=== PATIENT | male | born 1945 | race Caucasian/White ===

== ENCOUNTER 2016-07-20 11:15 | Outpatient (CLI) | payer MEDICAID ==
[~2016-07-20] VITALS: Ht 175.3 cm; Wt 90.1 kg
--- NOTE | ~2016-07-20 | HEMODYNAMI ---
PATIENT:PATRICIA OCHOA MEDICAL RECORD: [id number] : 49 LOCATION:[facility] [id number] ADMISSION DATE: 07/20/16 Generatedon:07/21/20169:10 Patient name: PATRICIA OCHOA Patient #: [id number] SSN: : 1945 Date of study: 07/21/2016 Page: Of Hemodynamic Procedure Report Patient Data Patient Demographics Procedure consent was obtained First Name: PATRICIA Gender: Male Last Name: DON : 1945 Patient #: [id number] Age: 71 year(s) Race: Unknown Additional ID: [id number] Contact details [address]: [address] [place] [address] State: [place] City: [place] Zip code: [address] Past Medical History Allergies: No known allergies Admission Admission Data Admission Date: 07/20/2016 Admission Time: 12:27 Room #: [facility] Lab Results Lab Result Date: 07/21/2016 Lab Result Time: 0:00 Biochemistry Name Units Result Min Max BUN mg/dl 17 --(---*)-- 7 18 Creatinine mg/dl 1 --(--*-)-- 0.6 1.3 CBC Name Units Result Min Max Hemoglobin g/dl 14.8 --(-*--)-- 13.5 17.5 Procedure Procedure Types Cath Procedure Diagnostic Procedure [facility] w/Coronaries PCI Procedure Coronary Stent Initial Procedure Description Procedure Date Procedure Date: 07/21/2016 Procedure Start Time: 8:39 Procedure End Time: 9:09 Procedure Staff Name Function German Bunn MD Performing Physician John Sandoval RT Scrub Kimberley Adam RN Nurse Herve Ramon RT Monitor Procedure Data Cath Procedure Fluoroscopy Diagnostic fluoroscopy Total fluoroscopy Time: 7.2 time: 7.2 min min Diagnostic fluoroscopy Total fluoroscopy dose: dose: 1425 mGy 1425 mGy Contrast Material Contrast Material Type Amount (ml) Isovue 300 143 Entry Location Entry Primary Successful Side Size Upsize Upsize Entry Closure Shen ccessful Closure Location (Fr) 1 (Fr) 2 (Fr) Remarks Device Remarks Radial Right 6 Fr Mechanical artery Short Compression Femoral Right 6 Fr Exoseal artery Short Diagnostic catheters Device Type Used For End Catheter Placement Terumo 5Fr Raymon 110cm LV Angiography catheter Terumo 5Fr [place] 110cm Left Coronary catheter Angiography Cordis Infinity 5Fr AR Right Coronary MOD Catheter Angiography Cordis Infinity 5Fr 3DRC Right Coronary catheter Angiography Procedure Complications No complications Procedure Medications Medication Administration Route Dosage Oxygen NC 2 l/min Lidocaine 2% added to field 20 Heparin Flush Bag added to field 2 bags (1000units/500ml NS) 0.9% NaCl I.V. 100 ml/hr Versed I.V. 1 mg Fentanyl I.V. 50 mcg Radial Cocktail I.A. 1 syringe (Verapomil 2mg/Nitro 400mcg/Heparin 1500units) Versed I.V. 1 mg Fentanyl I.V. 50 mcg Heparin Bolus I.V. 9000 units Plavix P.O. 600 mg Hemodynamics Rest HGB: 14.8 (g/dl) Heart Rate: 52 (bpm) Pressure Samples Time Site Value (mmHg) Purpose Heart Use Rate(bpm) 8:41 LV 101/9,18 EDP 78 8:42 AO 91/56(68) Pullback 76 8:42 LV 112/16,20 Pullback 76 Gradients Valve Time Site 1 Site 2 Mean SEP/DFP Peak To Heart Use (mmHg) (sec/min) Peak Rate (mmHg) (bpm) Aortic 8:42 LV AO 9 19 21 76 112/16,20 91/56(68) Calculations Valve P-P Mean Valve Index Valve Source Name Gradient Area Flow (cm2) Aortic 21 9 21 9 Snapshots Pre Cath Intra NCS Post Cath Vital Signs Time Heart Resp SPO2 NIBP (mmHg) Rhythm Pain Sedation Rate (ipm) (%) Status Level (bpm) 8:21:45 52 25 99 142/67(116) NSR 0 (11) 10(A) , No pain 8:26:05 61 29 98 133/67(104) NSR 0 (11) 10(A) , No pain 8:30:23 57 23 98 129/71(101) NSR 0 (11) 10(A) , No pain 8:34:43 58 18 98 122/63(87) NSR 0 (11) 10(A) , No pain 8:38:59 56 16 98 111/61(87) NSR 0 (11) 9(A) , No pain 8:43:11 79 15 97 96/53(86) NSR 0 (11) 9(A) , No pain 8:47:19 66 17 96 114/63(80) NSR 0 (11) 9(A) , No pain 8:51:34 58 18 99 125/55(90) NSR 0 (11) 9(A) , No pain 8:55:50 59 16 99 120/65(81) NSR 0 (11) 9(A) , No pain 9:00:07 61 18 99 107/59(75) NSR 0 (11) 9(A) , No pain 9:04:16 58 19 98 118/64(93) NSR 0 (11) 10(A) , No pain 9:09:09 61 21 98 124/68(98) NSR 0 (11) 9(A) , No pain Medications Time Medication Route Dose Verified Delivered Reason Notes Effectiveness by by 8:20:41 Oxygen NC 2 l/min German Buffie used for Kendell Adam RN procedure 8:20:49 Lidocaine 2% added 20ml German German for local to vial Kendell Bunn MD anesthetic field 8:20:54 Heparin Flush added 2 bags German German used for Bag to Kendell Bunn MD procedure (1000units/500ml field NS) 8:21:03 0.9% NaCl I.V. 100 German Buffie Per physician ml/hr Kendell Adam RN 8:33:24 Versed I.V. 1 mg German Buffie for sedation Kendell Adam RN 8:33:30 Fentanyl I.V. 50 mcg German Buffie for sedation Kendell Adam RN 8:41:35 Radial Cocktail I.A. 1 German German for (Verapomil syringe Kendell Bunn MD vasodilation 2mg/Nitro 400mcg/Heparin 1500units) 8:41:40 Versed I.V. 1 mg German Buffie for sedation Kendell Adam RN 8:41:43 Fentanyl I.V. 50 mcg German Buffie for sedation Kendell Adam RN 8:55:07 Heparin Bolus I.V. 9,000 German Buffie for verif ied units Kendell Adam RN anticoagulation with dr bunn 9:06:50 Plavix P.O. 600 mg German Adam RN antiplatelet therapy Procedure Log Time Note 7:57:27 ACC Patient presents with Unstable Angina CCS Anginal Class 2--Slight limitation of ordinary activity. 7:58:04 Diagnostic Cath status Urgent 8:00:30 John Sandoval RT(R) sent for patient. Start room use. 8:10:48 Patient received from PCU to CCL 1 Alert and oriented. Tansferred to table in Supine position. 8:14:38 Time tracking: Regular hours 8:14:42 Plan of Care:Hemodynamics will remain stable., Cardiac rhythm will remain stable., Comfort level will be maintained., Respiratory function will remain adequate., Patient/ family verbilizes understanding of procedure., Procedure tolerated without complication., Recovers from procedure without complications.. 8:14:55 Warm blankets applied, and david hugger turned on for patient comfort. 8:14:56 Correct patient and procedure confirmed by team. 8:14:57 Signed procedure consent form obtained from patient. 8:14:57 ECG and BP/O2 sat monitors applied to patient. 8:20:34 Vital chart was started 8:20:35 Baseline sample Acquired. 8:20:38 Rhythm: sinus rhythm 8:20:41 Oxygen 2 l/min NC was given by Kimberley Adam RN; used for procedure; 8:20:41 Full Disclosure recording started 8:20:49 Lidocaine 2% 20ml vial added to field was given by German Bunn MD; for local anesthetic; 8:20:54 Heparin Flush Bag (1000units/500ml NS) 2 bags added to field was given by German Bunn MD; used for procedure; 8:21:03 0.9% NaCl 100 ml/hr I.V. was given by Kimberley Adam RN; Per physician; 8:21:49 H&P Date Dictated: 07/20/2016 Within 30 days and on chart.. 8:21:50 Pre-procedure instructions explained to patient. 8:21:51 Pre-op teaching completed and patient verbalized understanding. 8:21:56 Patient NPO since Midnight. 8:22:03 Patient allergic to No known allergies 8:22:06 Is the patient allergic to Iodine/contrast media? No. 8:22:13 Is patient on blood thinner?No 8:22:38 Patient diabetic? No. 8:22:40 ----Pre-sedation anethsthesia assessment.---- 8:22:43 Previous problem with sedation/anesthesia? No ? 8:22:44 Snore? Yes 8:22:45 Sleep apnea? No 8:22:47 Deviated septum? No 8:22:48 Opens mouth fully? Yes 8:22:49 Sticks out tongue? Yes 8:22:51 Airway obstruction? No ? 8:22:53 Dentures? No ? 8:22:54 Pre procedure: right dorsailis pedis pulse 1+ Palpable, but thready & weak; easily obliterated 8::57 Modified Andre's test Ulnar < 7 seconds 8:22:59 Patient pain scale 0/10 ?. 8:23:09 IV patent on arrival in left forearm with 0.9% NaCl at 10ml/hr. 8::38 Lab Result : BUN 17 mg/dl 8::38 Lab Result : Hemoglobin 14.8 g/dl 8::38 Lab Result : Creatinine 1 mg/dl 8:27:06 Lab results completed and on chart. 8:27:09 Right Radial & Right Groin area was prepped with chlora-prep and draped in sterile fashion 8:27:10 Alarms reviewed by R. N. 8:27:10 Sharps counted by scrub and verified by R.N. 8:27:11 Physician paged 8:30:02 Zero performed for pressure channel P1 8:31:30 --------ALL STOP TIME OUT------ 8:31:31 Final Timeout: patient, procedure, and site verified with staff and physician. All members of the team are in agreement. 8:31:32 Right Radial & Right Groin site verified by team. 8:31:35 Physical assessment completed. ASA score P 2 - A patient with mild systemic disease as per German Bunn MD. 8:31:42 Sedation plan: IV Moderate Sedation Versed, Fentanyl 8:33:24 Versed 1 mg I.V. was given by Kimberley Adam RN; for sedation; 8:33:30 Fentanyl 50 mcg I.V. was given by Buffie Daam RN; for sedation; 8:38:47 Use device set Radial Dx 8:38:50 Acist Syringe opened to sterile field. 8:38:51 Cardinal Cath Pack opened to sterile field. 8:38:51 Bag Decanter opened to sterile field. 8:38:52 Terumo 6Fr Slender Glidesheath opened to sterile field. 8:38:52 St Tigre 260cm J .035 wire opened to sterile field. 8:38:53 Acist Hand Control opened to sterile field. 8:38:54 Acist Manifold opened to sterile field. 8:38:55 Tegaderm 4 x 4 opened to sterile field. 8:39:04 Procedure started. 8:39:49 Local anesthetic to right radial artery with Lidocaine 2% by German Bunn MD.INITIAL ACCESS ONLY 8:40:00 A 6 Fr Short sheath was inserted into the Right Radial artery 8:40:47 A Terumo 5Fr Raymon 110cm catheter was advanced over the wire and used for LV Angiography. 8:40:50 LV angiography performed. 8:41:35 Radial Cocktail (Verapomil 2mg/Nitro 400mcg/Heparin 1500units) 1 syringe I.A. was given by German Bunn MD; for vasodilation; 8:41:36 LV gram done using QUIROZ 8:41:37 LV hemodynamics recorded. 8:41:40 Versed 1 mg I.V. was given by Kimberley Adam RN; for sedation; 8:41:41 Injector settings: Ml/sec: 5, Volume: 15, 8:41:43 Fentanyl 50 mcg I.V. was given by Kimberley Adam RN; for sedation; 8:41:48 EF : 50 % 8:42:59 Catheter removed. 8:43:18 A Terumo 5Fr [place] 110cm catheter was advanced over the wire and used for Left Coronary Angiography. 8:44:39 LCA angiography performed. 8:46:03 Catheter removed. 8:46:41 A Cordis Infinity 5Fr AR MOD Catheter was advanced over the wire and used for Right Coronary Angiography. 8:47:57 Catheter removed. 8:48:03 Local anesthetic to right femoral artery with Lidocaine 2% by German Bunn MD.ADDITIONAL ACCESS 8:48:11 A 6 Fr Short sheath was inserted into the Right Femoral artery 8:48:24 Terumo 6Fr [place] Sheath opened to sterile field. 8:48:55 A Cordis Infinity 5Fr 3DRC catheter was advanced over the wire and used for Right Coronary Angiography. 8:49:04 RCA angiography performed. 8:49:26 Baseline sample Acquired. 8:51:29 Catheter removed. 8:53:17 High Pressure Extension Tubing (Bunn) opened to sterile field. 8:53:18 Taylor BMW [place] 2 J-tip 300cm 0.014 guide wir opened to sterile field. 8:53:18 MuciMed BasixCompak Inflation Kit opened to sterile field. 8:53:19 Cordis 6FR XBLAD 3.5 guide catheter opened to sterile field. 8:53:29 ACC PCI Site: mLAD has 99% stenosis. 8:53:31 ACC Pre-intervention YANET Flow is 3. 8:53:40 6 Fr XBLAD 3.5 guide catheter was inserted over the wire 8:53:45 BMW 2 wire advanced. 8:55:07 Heparin Bolus 9,000 units I.V. was given by Kimberley Adam RN; for anticoagulation; verified with dr bunn 8:56:36 Inflation number: 1 A [employer] [place] 2.5 X 12 balloon was prepped and advanced across the Mid LAD, then inflated to 12 ROHINI for 0:13 (min:sec). 8:57:22 Balloon removed over the wire. 8:57:37 Procedure type changed to Cath procedure, Diagnostic procedure, LHC, LHC w/Coronaries, PCI procedure, Coronary Stent Initial 9:00:21 Inflation Number: 2 A [place] Visiontronic Integrity 3.0 X 22 stent was prepped and advanced across the Mid LAD. The stent was deployed at 14 ROHINI for 0:12 (min:sec). 9:02:11 Cordis 6Fr Exoseal opened to sterile field. 9:02:12 Terumo TR Band Standard opened to sterile field. 9:02:18 ACC Post-intervention YANET Flow is 3. 9:02:19 Stent catheter was removed intact over wire. 9:02:20 Wire removed. 9:02:20 Guide catheter removed. 9:02:26 Contrast amount:Isovue 300 143ml. 9:02:36 Sheath removed intact; hemostasis achieved with Exoseal to the Right Femoral artery. 9:02:41 Sheath removed intact; hemostasis achieved with Mechanical Compression to the Right Radial artery. 9:02:43 Procedure ended.(Physican Out) 9:02:55 Fluoroscopy time 07.20 minutes. 9:03:00 Fluoroscopy dose: 1425 mGy 9:03:00 Flurop Dose total: 1425 9:03:01 Sharps counted by scrub and verified by R.N. 9:03:03 TR band inflated with 10cc of air. 9:03:04 Insertion/operative site no bleeding no hematoma. 9:03:08 Post-op/insertion site Right Femoral artery dressed using a 4 x 4 and Tegaderm. 9:03:10 Post right femoral artery:stable 9:03:15 Post right radial artery:stable 9:03:16 Post Procedure Pulses reassessed and unchanged 9:03:18 Post procedure rhythm: sinus rhythm 9:03:20 Post procedure instruction explained to patient.Patient verbalizes understanding. 9:06:32 Procedure and supply charges have been captured, reviewed, submitted and are correct. 9:06:36 Procedure Complication : No complications 9:06:50 Plavix 600 mg P.O. was given by Kimberley Adam RN; for antiplatelet therapy; 9:09:08 Vital chart was stopped 9:09:09 See physician's report for complete and final results. 9:09:11 Report given to PCU. 9:09:14 Patient transfered to PCU with Bed. 9:09:16 Procedure ended. 9:09:16 Full Disclosure recording stopped 9:09:25 End room use (Document Last) 9:09:30 ACC-PCI Only Patient was given prescriptions, or instructed by German Bunn MD to start/continue the following medications upon discharge: Plavix Intervention Summary Intervention Notes Time ActionType Lesion and Equipment Action# Pressure Duration Attributes Used 8:56:36 Inflate Mid LAD Roy 1 12 00:14 balloon Sci [place] 2.5 X 12 balloon 9:00:21 Place stent Mid LAD Medtronic 2 14 00:12 Integrity 3.0 X 22 stent Device Usage Item Name Manufacture Quantity Catalog Number Hospital Part Current Mini mal Lot# / Charge Number Stock Stock Serial# Code Acist Acist 1 34026 816138 823953 928196 20 Novomer [facility] Cardinal Cardinal 1 [id number] 501965 20491 740117 5 Cath Pack Health Bag Microtek 1 2002S [id number] 69625 949447 5 CEYX Inc. Terumo 6Fr Terumo 1 [id number] 778180 797550 671047 [address] Tig[address] St Tigre 1 [id number] 230855 210718 519841 30 260cm J .035 wire Acist Hand Acist 1 94698 263520 292439 062129 5 Black Ocean [employer] Inc Acist Acist 1 85624 460818 854154 820477 5 DisplayLink Medical Systems Inc Tegaderm 4 3M 1 1626W 611065 146006 357825 5 x 4 Terumo 5Fr Terumo 1 40-5023 317555 654210 670303 5 Raymon 110cm catheter Terumo 5Fr Terumo 1 40-0513 666860 496208 405536 5 [place] 110cm catheter Cordis Cardinal 1 [id number] 394442 116386 634711 15 [employer] Solutions Pvt. [employer].ity Health 5Fr AR MOD Catheter Terumo 6Fr Terumo 1 [id number] 058870 361642 720691 40 [place] Sheath Cordis Cardinal 1 [id number] 207490 479314 374968 9 Infinity VYRE Limited 5Fr 3DRC catheter High Merit 1 [id number] 048968 16355 057303 10 Pressure Medical Extension Tubing (Bunn) Taylor BMW Taylor 1 [id number] 672271 180878 094120 5 [place] 2 Vascular J-tip 300cm 0.014 guide wir Merit Merit 1 [id number] 582900 457485 152186 15 [facility]als[facility] Medical Inflation Kit Cordis 6FR Cardinal 1 [id number] 356521 426916 931916 10 XBLAD 3.5 Health guide catheter Roy Sci Roy 1 [id number] 953247 435734 927411 1 [id number] [employer]era 2.5 X 12 balloon Medtronic Medtronic 1 [id number] 167065 990227 741188 0 [id number] Integrity 3.0 X 22 stent Cordis 6Fr Cardinal 1 EX600 578154 343522 860410 10 Shopetti Health Terumo TR Terumo 1 [id number] 895957 880034 761967 40 Band Standard Signature Audit [place] Stage Time Signature Unsigned Intra-Procedure 07/21/2016 Herve Ramon 9:10:09 AM RT(R) Signatures Monitor : Herve Ramon RT Signature : Date : Time : [id number] [place] [address]
[2016-07-20 10:37] LABS: BASOPHILS 0.4 % (0.0-2.0); EOSINOPHILS 1.4 % (0-7); HEMATOCRIT 44.3 % (42.0-54.0); HEMOGLOBIN 14.8 g/dL (13.5-17.5); IMMATURE GRANULOCYTES 0.3 % (0-5); LYMPHOCYTES 16.7 % (15-50); MCH 31.6 pg (26.0-34.0); MCHC 33.4 g/dL (31.0-37.0); MCV 94.7 fL (80.0-100.0); NEUTROPHILS 75.2 % (40-80); PLATELET COUNT 254 10x3/uL (130-400); RBC 4.68 10x6/uL (4.20-6.10); RDW 13.4 % (11.5-14.5); WBC 7.7 10x3/uL (4.8-10.8)
[2016-07-20 10:41] LABS: ALBUMIN 3.6 g/dL (3.4-5.0); ALKALINE PHOSPHATASE 40 U/L (46-116); ALT (SGPT) 25 U/L (10-68); BILIRUBIN - TOTAL 0.45 mg/dL (0.2-1.3); CALC OSMOLALITY 288 mosm/kg (275-300); CALCIUM 8.8 mg/dL (8.5-10.1); CHLORIDE - SERUM 106 mmol/L (98-107); GLUCOSE 138 mg/dL (74-106); PROTEIN - SERUM 6.7 g/dL (6.4-8.2); SODIUM 143 mmol/L (136-145); UREA NITROGEN 17 mg/dL (7-18); eGFR NON AFRICAN AMERICAN 79 mL/min (90-120)
[2016-07-20 10:56] LABS: CHOL - HDL RATIO 4.8 ratio (2.3-4.9); CHOLESTEROL, TOTAL 214 mg/dL (0-200); CKMB 3.8 U/L (0.0-3.6); CREATINE KINASE 106 UL (21-232); HDL CHOLESTEROL 45 mg/dL (32-96); LDL CHOLESTEROL 144 mg/dL (0-100); LDL-HDL RATIO 3.2 ratio (1.5-3.5); TRIGLYCERIDE 127 mg/dL (30-200)
[2016-07-20 11:05] LABS: TROPONIN-I 0.505 ng/mL (0.000-0.060)
[2016-07-20 13:31] VITALS: BP 134/73; Ht 175.3 cm; Wt 90.1 kg
--- NOTE | 2016-07-20 13:48 | NUR ---
PT RECIEVED FROM ER. PT ADMITTED WITH C/P BUT DENIES ANY AT PRESENT TIME. HERE.PT SHOWS SR ON TELEMERTY. SL TO LEFT ARM. TELEMERTY SHOWS SR. SR UP WITH CALL LIGHT IN REACH. WILL MONITOR
--- NOTE | 2016-07-20 14:24 | NUR ---
LYING QUIETLY. DENIES ANY NEEDS. TELEMRTY SHOWS SR. WILL MONITOR
[2016-07-20 14:47] VITALS: BP 112/65
--- NOTE | 2016-07-20 15:00 | NUR ---
PT SITTING UP IN BED GUARDS AT BEDSIDE. PT IS SHACKLED. DENIES NEEDS
[2016-07-20 17:08] LABS: CKMB 4.6 U/L (0.0-3.6); CREATINE KINASE 90 UL (21-232)
--- NOTE | 2016-07-20 18:08 | NUR ---
LYING QUIETLY WITH HOB UP. DENIES ANY NEEDS.CALL LIGHT IN REACH WITH SR UP.TELEMERTY SHOWS SB
[2016-07-20 20:10] VITALS: BP 124/78
--- NOTE | 2016-07-20 22:41 | NUR ---
DR ALLISON CALLS FLOOR, ORDERS FOR PT TO BE NPO AFTER MIDNIGHT AND TO INITIATE PRE CATH ORDERS. PT TO HAVE CARDIAC CATH IN AM.
--- NOTE | 2016-07-20 23:00 | NUR ---
PT SIGNS INFORMED CONSENT FOR HEART CATH IN THE AM.
[2016-07-20 23:29] LABS: CKMB 4.1 U/L (0.0-3.6); CREATINE KINASE 95 UL (21-232)
[2016-07-21 00:35] VITALS: BP 110/69
--- NOTE | 2016-07-21 02:00 | NUR ---
PT RESTING WELL WITHOUT C/O OR DISTRESS NOTED. NO NEEDS VOICED. CALL LIGHT WITHIN REACH. WILL CONT TO MONITOR.
[2016-07-21 04:28] VITALS: BP 105/60
[2016-07-21 06:36] LABS: CKMB 3.9 U/L (0.0-3.6); CREATINE KINASE 85 UL (21-232)
--- NOTE | 2016-07-21 07:30 | NUR ---
ASSESSMENT COMPLETED. TELEMERTY SHOWS SR WITH A RATE OF 61. LEFT ARM SL. DENIES ANY NEEDS.
--- NOTE | 2016-07-21 07:50 | NUR ---
TO DELIVERY DEPARTMENT SUPERVISOR PER BED
[2016-07-21 08:07] VITALS: BP 134/85
--- NOTE | 2016-07-21 09:19 | NUR ---
IN RETAIL COMMISSION SALES ASSOCIATE AT THIS TIME. WILL COT. PLAN OF CARE.
--- NOTE | 2016-07-21 09:29 | NUR ---
RECIEVED FROM SEARCH OPTIMIZATION ANALYST. RIGHT WRIST TR BAND ON. RIGHT GROIN SOFT WITH LOIS INTACK. SOME BLOOD HAD OOZED BEFORE COMING TO ROOM, BUT NO ACTIVE BLEEDING NOTED. PPP. V/S STABLE. CALL LIGHT IN REACH WITH SR UP. WILL MONITOR
--- NOTE | 2016-07-21 10:04 | NUR ---
RIGHT GROIN SOFT WITH NO ACTIVE BLEEDNG. RIGHT WRIST WITH NO BLEEDING. V/S STABLE. TELEMERTY SHOWS SB 58. WILL MONITOR
[2016-07-21] MEDS ORDERED: PLAVIX75 MG PO (11:45)
--- NOTE | 2016-07-21 12:15 | NUR ---
TR BAND WITHOUT BLEEDING. RIGHT GROIN SOFT WITH NO BLEEDING. PPP. NO NEEDS VOICED. V/S STABLE. TELEMERTY SHOWS SR. WILL MONITOR
[2016-07-21 12:19] VITALS: BP 119/69
--- NOTE | 2016-07-21 13:37 | NUR ---
PT GOT UP TO BATHROOM AND TOLD GUARD THAT HE FELT LIKE HE WAS GONNA PASSOUT. HE WAS COLD AND CLAMY. B/P WAS 91/54, HR WAS 49. BACK TO BED WITH HELP. R9IGHT GROIN WAS FIRM AND SWEELING. PRESSURE HELD AND FEM STOP APPLIED. DR ALLISON HERE ON FLOOR AND NOTIFIED. WILL MONITOR
[2016-07-21 16:33] VITALS: BP 133/60
[2016-07-21 19:40] VITALS: BP 121/66
--- NOTE | 2016-07-21 21:43 | NUR ---
INIITAL ROUNDS COMPLETED AT 1915 HRS. PT HAD C/O NAUSEA AND GENERALIZED MALAISE. R GROIN WITH BRUISING NOTED. SOFT TO TOUCH. PALPABLE PEDAL PULSES. ASSESSMENT COMPLETED AT 1940 HRS. SR WITH DEPRESSED T WAVE HR 66. VSS. IV T LFA SL. DRESSING TO R WRIST CLEAN AND DRY. NO CHANGES TO R GROIN OR PEDAL PULSES. LUNGS DIMINISHED IN BASES BILAT. PT PALE WITH CONTIUED C/O NAUSEA. DR ALLISON CALLED AT 2024 HRS. INFORMED OF PT'S C/O NAUSEA AND GENERALIZED MALAISE. NEW ORDERS RECEIVED AND PM DISCHARGE DC'D UNTIL AM. ZOFREAN 4MG SIVP GIVEN AT 2030 HRS, PT CURRENTLY RESTING WITH EYES CLOSED. RESP EVEN AND REGULAR. SR UP X2, CALL LIGHT WITHIN REACH.
--- NOTE | 2016-07-22 00:14 | NUR ---
NO CAHNGES TO R GROIUN OR PEDAL PULSES. PT DENIES ANY NAUSEA AT THIS TIME. WILL CONTINUE TO MONITOR.
[2016-07-22 00:33] VITALS: BP 108/47
--- NOTE | 2016-07-22 03:03 | NUR ---
PT RESTING WITH EYES CLOSED. RESP EVEN AND REGULAR. SR UP X2, CALL LIGHT WITHIN REACH.
--- NOTE | 2016-07-22 04:47 | NUR ---
NO CHANGE TO R GROIN OR PEDAL PULSES NOTED. PT STATES FEELS MUCH IMPROVED THIS AM. WILL CONTINUE TO MONITOR.
[2016-07-22 05:19] VITALS: BP 122/71
--- NOTE | 2016-07-22 06:51 | NUR ---
VSS THROUGHOUT NIGHT. SR WITH DEPRESSED T WAVE PER CM. URINE THIS AM VERY DARK. WILL CONTINUE TO MONITOR.
--- NOTE | 2016-07-22 07:20 | NUR ---
ASSESSMENT DONE. DENIES NEEDS.
--- NOTE | 2016-07-22 09:59 | NUR ---
RESTS IN BED WITH CALL LIGHT IN REACH. WILL MONITOR NEEDS.
--- NOTE | 2016-07-22 10:38 | NUR ---
DC GIVEN TO OFFICER
--- NOTE | 2016-07-22 11:57 | NUR ---
DC BACK TO [facility] PER TRANSPORT VAN
--- NOTE | 2016-07-22 14:11 | NUR ---
Patient Name: PATRICIA OCHOA Admission Status: ER Accout number: [id number] Admission Date: 07-20-2016 : 1945 Admission Diagnosis: Attending: ENRIQUE Current LOS: 2 Anticipated DC Date: 07-22-2016 Planned Disposition: Court\Law Enforcement Primary Insurance: MEDICAID SKILLED NURSING Discharge Planning Comments: * Is the patient Alert and Oriented? Yes 0 * How many steps to enter\exit or inside your home? 15 0 * PCP [facility] 0 * Pharmacy [facility] 0 * Preadmission Environment Other 0 * Other Environment [facility] 0 * [facility] 0 * ADLs Independent 0 * Equipment None 0 * Other Equipment NONE 0 * List name and contact numbers for known caregivers / representatives who currently or will assist patient after discharge: [facility], [place], 0 * Community resources currently utilized None 0 * Please name any agencies selected above. NONE 0 * Additional services required to return to the preadmission environment? No 0 * Can the patient safely return to the preadmission environment? Yes 0 * Has this patient been hospitalized within the prior 30 days at any hospital? No 0 CM MET WITH PT AND GUARD IN ROOM. PT IS CURRENTLY INCARCERATED IN [facility] SKILL[facility]SING. PT WILL RETURN THERE AT DISCHARGE. PT LIVES IN GENERAL POPULATION AND THE [facility] N[facility]SING VAN IS ON THE WAY TO DIESEL ENGINE I PIPE FITTER PT AND GUARD NOW. GUARD STATES THE NURSE HAS ALREADY CALLED NURSE REPORT TO THE FACILITY. PT DENIES NEED OF MEDICAL EQUIPMENT OR REHAB SERVICES, WILL RETURN TO HIS GENERAL POPULATION CELL TODAY. Window Covering Sales Consultant: Yony Gonzalez
--- NOTE | 2016-07-29 15:45 | DS ---
PATIENT:PATRICIA STRICKLAND :[birth year] MEDICAL RECORD: [id number] DISCHARGE SUMMARY ADMISSION DATE: 07/20/16 DISCHARGE DATE: 07/22/16 DATE OF ADMISSION: 07/20/2016 DATE OF DISCHARGE: 07/21/2016 ADMISSION DIAGNOSIS: Unstable angina. SECONDARY DIAGNOSIS: Atherosclerotic heart disease. HOSPITAL COURSE: Mr. Strickland is a 71-year-old gentleman who presented to the Emergency Room, who had an episode of prolonged chest discomfort. It was relieved with nitroglycerin. His initial enzymes were slightly positive. He underwent cardiac catheterization. This revealed a 99% stenosis in the LAD. This was successfully stented. He will be observed for 4 hours of bed rest. If his groin was without hematoma or bruit in 4 hours, he will be discharged. MEDICATIONS ON DISCHARGE: Include Plavix 75 mg a day. FOLLOWUP: We will plan on seeing him back in clinic in approximately 3-4 weeks. TRANSINT:[id number] Voice Confirmation ID: [id number] DOCUMENT ID: [id number] JUHI ALLISON M.D. at 1545 CC: [id number] DICTATION DATE: 07/21/16 0910 TRAVELERS' AID WORKER: 07/21/16 1007 DEP CLI 07/22/16 [id number] [place] [address]
--- NOTE | 2016-07-29 15:45 | OP ---
PATIENT NAME: PATRICIA OCHOA MEDICAL RECORD: [id number] :47 LOCATION:D.CAT ADMISSION DATE: SURGEON: JUHI ALLISON M.D. DATE OF OPERATION: 07/21/2016 PROCEDURES PERFORMED: 1. Selective coronary angiography. 2. Left heart catheterization with ventriculogram. 3. PTCA and stent placement to the LAD. INDICATION: This 71-year-old gentleman presents with unstable angina and abnormal cardiac enzymes. EQUIPMENT USED: Diagnostic 5-[place]z [place] catheter, Raymon catheter, 3DRC. INTERVENTION: A 6-Kyrgyz XB LAD guide, BMW guide wire, 2.5 x 12 mm [place] balloon, 3.0 x 22 mm Integrity stent. DESCRIPTION: Initially, 6-[place] sheath was inserted in retrograde fashion in the right radial artery. Next, selective coronary angiography was performed in standard views, 5-[place]z Raymon catheters and [place] catheters. The right coronary artery could not be cannulated because of tortuosity in the shoulder. Left heart catheterization performed using the Ray[place] catheter. At this point, a 6-Kyrgy[place] sheath was inserted in retrograde fashion in the right common femoral artery. The right coronary artery was engaged with 3DRC from the femoral approach. CORONARY ANATOMY: 1. Left main: Left main trunk is moderate in caliber. It gives rise to the LAD and circumflex. It is widely patent. 2. LAD: This is a large caliber vessel extending to the apex. The proximal vessel has an ulcerated 99% stenosis. 3. Circumflex: This vessel is moderate in caliber. It provides the lateral branch proximal segment. The circumflex and lateral branch have mild irregularities, but nothing worse than 20%. 4. Right coronary artery: This vessel is moderate in caliber and dominant. The mid vessel has a smooth 40% stenosis. It is not ulcerated or flow limiting. 5. Left ventricle: Left ventricle is normal in size and function. No wall motion abnormalities are seen. Estimated ejection fraction is 50% to 55%. DESCRIPTION OF INTERVENTION: A 100 units per kilogram of heparin was infused. A 6-[place]z XB LAD guide was advanced and engaged in the left main coronary artery. Next, a BMW guide wire was placed in the distal vessel. The proximal vessel was predilated with a 2.5 x 12 mm [place] balloon at 10 atmospheres. Next, a 3.0 x 22 mm Integrity stent was placed across the stenosis and deployed at 14 atmospheres. Injection reveals stent to be widely patent with 0% residual stenosis. There is marked improvement in distal flow. At this point, the wire and guide were removed. IMPRESSION: Successful percutaneous transluminal coronary angioplasty and stenting to the left anterior descending with 0% residual stenosis. TRANSINT:[id number] Voice Confirmation ID: [id number] DOCUMENT ID: [id number] OPERATIVE REPORT [id number] PATRICIA OCHOA TIMOTHY E M.D. at 1545 CC: [id number] DICTATION DATE: 07/21/16 0909 BREAKER UNIT ASSEMBLER: 07/21/16 1002 DEP CLI 07/22/16 [facility] [address] [place] [address]
== END 2016-07-22 11:58 | disposition home or self-care (01) ==
LOC: OBSVTIME → D.CATH 11:15 → D.M2 11:15 → D.ER 12:27 → OBSVTIME 12:27 → EDSTATUS 13:56 → D.CATH 07-22 11:58 → D.M2 07-22 11:58
PROVIDERS: Emergency Medicine
DX: I25.110 Atherosclerotic heart disease of native coronary artery with unstable angina pectoris (principal)

== ENCOUNTER → 2016-11-11 09:49 | Outpatient (CLI) | payer OTHER ==
[2016-07-20 13:31] VITALS: BMI 29.9
[~2016-11-11 09:49] MED LIST: PLAVIX75 MG PO
== END | disposition home or self-care (01) ==
LOC: D.CT 09:49
DX: R31.9 Hematuria, unspecified (principal)